=== PATIENT | female | born 1940 | race Caucasian/White ===

== ENCOUNTER 2021-12-03 06:34 | Emergency (ER) | payer OTHER ==
[2021-12-03 06:57] VITALS: TEMP 98; BMI 28.3
[2021-12-03] MEDS ORDERED: METOCLOPRAMIDE HCL INJECTION 10 MG/2 ML VIAL IVPUSH ONE (07:32)
[2021-12-03] MEDS ORDERED: ACETAMINOPHEN 1000 MG/100 ML BAG IVPB ONE (07:32)
[2021-12-03 08:07] LABS: BASO % 0.8 % (0-2.0); HEMATOCRIT 38.7 % (32.4-45.2); HEMOGLOBIN 12.6 GM/dL (10.7-15.3); LYMPH % 21.3 % (8-40); MCH 27.8 pg (25.7-33.7); MCHC 32.4 g/dl (32.0-36.0); MEAN CELL VOLUME 85.6 fl (80-96); MEAN PLT VOLUME 10.4 fl (7.5-11.1); MONO % 9.4 % (3.8-10.2); NEUT % 66.5 % (42.8-82.8); PLATELET COUNT 180 10^3/uL (134-434); RBC 4.53 M/mm3 (3.60-5.2); RDW 15.5 % (11.6-15.6); WHITE BLOOD COUNT 5.7 K/mm3 (4.0-10.0)
[2021-12-03 08:36] LABS: CALCIUM 8.5 mg/dL (8.5-10.1)
[2021-12-03 08:37] LABS: ALBUMIN 3.6 g/dl (3.4-5.0); MAGNESIUM 2.4 mg/dL (1.8-2.4)
[2021-12-03 08:40] LABS: CREATININE 0.7 mg/dL (0.55-1.3)
[2021-12-03 08:41] LABS: BILIRUBIN,TOTAL 0.4 mg/dL (0.2-1); TOT PROT 7.3 g/dl (6.4-8.2)
[2021-12-03 08:45] LABS: N-TERMINAL BNP 89.8 pg/ml (5-450)
[2021-12-03 10:57] LABS: BLOOD UREA NITROGEN 20.2 mg/dL (7-18)
[2021-12-03 11:00] LABS: CREATININE 0.7 mg/dL (0.55-1.3)
[2021-12-03 13:50] VITALS: BP 122/60; PULSE 66
== END 2021-12-03 13:57 | disposition home or self-care (01) ==
LOC: JER 06:34
PROC: 3E0333Z Introduction of Anti-inflammatory into Peripheral Vein, Percutaneous Approach (ICD-10-PCS; principal; 2021-12-03)
PROC: 3E033GC Introduction of Other Therapeutic Substance into Peripheral Vein, Percutaneous Approach (ICD-10-PCS; 2021-12-03)
DX: R51.9 Headache, unspecified (principal)
CPT/HCPCS: 36415; 70450-TC; 71045-TC-FY; 80048; 80053; 82550; 83735; 83880; 84484; 85025; 93005; 93010; 93971-TC; 99285-25